=== PATIENT | female | born 1995 | race Caucasian/White ===

== ENCOUNTER → 2016-11-25 | Outpatient (CLI) | payer BC, OTHER ==
[2016-11-25 11:47] LABS: HEMATOCRIT 37.4 % (37.0-47.0); HEMOGLOBIN 12.4 g/dl (12.0-16.0); MEAN CELL VOLUME 88.6 fl (81.0-99.0); MEAN CORPUSCULAR HGB 29.4 pg (27.0-31.0); MEAN CORPUSCULAR HGB CONC 33.2 g/dl (33.0-37.0); MEAN PLATELET VOLUME 9.6 fl (9.6-12.3); RED BLOOD COUNT 4.22 10*6/uL (4.10-5.10); RED CELL DISTRI WIDTH 12.5 % (0-14.5); WHITE BLOOD COUNT 6.6 10*3/uL (4.8-10.8)
[2016-11-25 12:16] LABS: BUN 12 mg/dl (7-24); CHLORIDE 106 mmol/L (98-107); CHOLESTEROL 124 mg/dL (<200); CREATININE 0.87 mg/dL (0.55-1.02); POTASSIUM 3.8 mmol/L (3.5-5.1); SGOT/AST 18 IU/L (3-35); SGPT/ALT 19 U/L (12-78); SODIUM 138 mmol/L (136-145); TOTAL PROTEIN 7.7 gm/dL (6.4-8.2); TRIGLYCERIDES 62 mg/dl (<150); VLDL CHOLESTEROL 12 mg/dL (6-40)
[2016-11-25 12:17] LABS: ALKALINE PHOSPHATASE 77 U/L (45-117); HDL CHOLESTEROL 50 mg/dl (40-60); LDL CHOLESTEROL 62 mg/dL (9-159)
== END | disposition home or self-care (01) ==
LOC: LAB 11:24
PROVIDERS: Family Medicine
DX: K29.70 Gastritis, unspecified, without bleeding (principal)

== ENCOUNTER 2016-11-28 06:14 | Inpatient (IN) | payer BC, OTHER ==
[~2016-11-28] VITALS: Ht 152.4 cm; Wt 45.0 kg
--- NOTE | ~2016-11-28 | WRIGHTHP ---
[place], [place] PATIENT HISTORY AND PHYSICAL EXAM NAME: LORENA CARRILLO [facility] #: [id number] UNIT #: [id number] ROOM: 502 DOCTOR: EVE JERONIMO MD BIRTHDATE: [birth year] DOS: 11/28/2016 HISTORY OF PRESENT ILLNESS: The patient is a 21-year-old female with no past medical history, who presents with abdominal pain in the middle of her stomach, radiating to the right upper quadrant area and no bowel movements since Thursday. The patient was nauseated, but did not vomit. No chest pain. No shortness of breath. No other GI or urinary symptoms. The patient was seen in the Emergency Department and diagnosed as having symptomatic gallstones and was seen by surgeon, Dr. Dyson and recommended for outpatient cholecystectomy on and for patient to be discharged to home. The patient is feeling much better now. REVIEW OF SYSTEMS: LUNGS: No increasing shortness of breath or wheezing. GASTROINTESTINAL: The patient has nausea, but no vomiting or any other symptoms. CARDIOVASCULAR: No chest pains or palpitations. FAMILY HISTORY: Noncontributory. SOCIAL HISTORY: The patient has a fiance, planning to get next month. Denies smoking cigarettes, alcohol or any drug abuse. ALLERGIES: PENICILLIN. PHYSICAL EXAMINATION: GENERAL: Alert, oriented. HEENT AND NECK: Extraocular movements are intact. Sclerae are anicteric. Oral mucosa is moist and clean. No obvious facial weakness. Neck is supple without any lymphadenopathy. No thyromegaly. No JVD. No carotid arterial bruits. LUNGS: Clear to auscultation. No wheezing. No rhonchi. CARDIOVASCULAR SYSTEM: Heart rate is regular in rate and rhythm. S1 and S2 normally audible. No significant murmur or any other abnormal cardiac sounds. ABDOMEN: Mild right upper quadrant discomfort on deep palpation. No rigidity, guarding or rebound tenderness. EXTREMITIES: Without significant cyanosis or edema. Warm to touch. CENTRAL NERVOUS SYSTEM: Alert and oriented x 3. Cranial nerves II-XII are intact. Speech is normal. The patient is able to move all extremities. Normal muscle strength. Deep tendon reflexes are equal on both sides. Plantars were downgoing. LABORATORY DATA: PT, PTT were normal. Ultrasound of the gallbladder showed distended gallbladder with sludge and stones. No biliary dilatation. Normal serum electrolytes. Potassium level of 3.3. Bilirubin elevated at 1.8. Normal CBC. IMPRESSION AND PLAN: 1. The patient with symptomatic gallstones and sludge with slight elevation of bilirubin. The patient was seen by surgeon, Dr. Dyson and recommended outpatient cholecystectomy on . The patient just had nausea for which I will keep her on p.r.n. Zofran and Dr. Dyson has given her prescription for p.r.n. Vicodin [place], [place] PATIENT HISTORY AND PHYSICAL EXAM [id number] #: [id number] ROOM: [facility] DOCTOR: KANDACE BERRY,EVE Johnson BIRTHDATE: [birth year] for pain control. 2. Hypokalemia. The patient is being given extra potassium today and following this patient will be discharged to home to follow up with Dr. Dyson for surgery. 3. Young healthy female with no cardiac history, no mitral valve prolapse, no bleeding disorder. The patient does not take any anticoagulants/ The patient does not have any complaints of chest pain, shortness of breath. No gastrointestinal or urinary symptoms except for nausea, which has resolved. EVE JERONIMO MD CM:HISPHYS:PATIENT HISTORY AND PHYSICAL EXAMINATION [id number] EVE JERONIMO MD 11/28/16 1557 interface
[2016-11-28] MEDS ORDERED: PRILOSEC20 M1 PO (06:21)
[2016-11-28 06:22] VITALS: BP 126/85
[2016-11-28 06:52] LABS: BASO % 0.3 % (0.0-1.0); EOS # 0.1 10*3/uL (0.0-0.4); EOS % 1.1 % (1.0-4.0); HEMATOCRIT 36.8 % (37.0-47.0); HEMOGLOBIN 12.5 g/dl (12.0-16.0); LYMPH # 2.1 10*3/uL (1.3-4.4); LYMPH % 20.4 % (27.0-41.0); MEAN CELL VOLUME 87.8 fl (81.0-99.0); MEAN CORPUSCULAR HGB 29.8 pg (27.0-31.0); MEAN PLATELET VOLUME 9.5 fl (9.6-12.3); MONO # 0.7 10*3/uL (0.1-1.0); MONO % 6.6 % (3.0-9.0); NEUT # 7.4 10*3/uL (2.3-7.9); NEUT % 71.3 % (47.0-73.0); PLATELET COUNT AUTOMATED 260 10*3/uL (130-400); RED BLOOD COUNT 4.19 10*6/uL (4.10-5.10); RED CELL DISTRI WIDTH 12.4 % (0-14.5); WHITE BLOOD COUNT 10.4 10*3/uL (4.8-10.8)
[2016-11-28 06:57] LABS: BILIRUBIN NEGATIVE (NEGATIVE); BLOOD NEGATIVE (NEGATIVE); CLARITY CLEAR (CLEAR); COLOR YELLOW (YELLOW); GLUCOSE NEGATIVE (NEGATIVE); KETONE NEGATIVE (NEGATIVE); LEUKO ESTERASE NEGATIVE (NEGATIVE); NITRITE NEGATIVE (NEGATIVE); UROBILINOGEN 0.2 E.U./dl (0.2-1.0)
[2016-11-28 07:09] LABS: ALBUMIN 3.9 gm/dl (3.1-4.5); ALKALINE PHOSPHATASE 77 U/L (45-117); BUN 10 mg/dl (7-24); CHLORIDE 106 mmol/L (98-107); CREATININE 0.83 mg/dL (0.55-1.02); LIPASE 120 U/L (73-393); POTASSIUM 3.3 mmol/L (3.5-5.1); SGOT/AST 15 IU/L (3-35); SGPT/ALT 18 U/L (12-78); SODIUM 140 mmol/L (136-145); TOTAL PROTEIN 7.6 gm/dL (6.4-8.2)
[2016-11-28 07:11] LABS: BACTERIA TRACE; WBC 0-2 wbc/hpf (0-5)
[2016-11-28 07:16] LABS: BETA-HCG, QUANT < 1.0 mIU/mL (1-3)
--- NOTE | 2016-11-28 07:18 | NUR ---
PATIENT IS ALERT AND ORIENTED X3, STATES THAT HER PAIN IS CURRENTLY A 6/10, PATIENT IS RESTING IN POSITION OF COMFORT IN THE BED, SKIN IS PINK, WARM, AND DRY, RESPIRATIONS ARE EASY AND NONLABORED, PATIENT DENIES ANY OTHER COMPLAINTS AT THIS TIME, CALL LIGHT IN REACH OF THE PATIENT, CONTINUING TO MONITOR THE PATIENT.SHARON ALY
[2016-11-28 07:20] VITALS: BP 119/76
[2016-11-28 08:11] VITALS: BP 112/82
--- NOTE | 2016-11-28 08:11 | NUR ---
PATIENT IS ALERT AND ORIENTED X3, PATIENT IS RESTING IN BED AND TALKING WITH SIGNIFICANT OTHER AND PLAYING WITH 9 MONTH OLD SON, SKIN IS PINK, WARM, AND DRY, RESPIRATIONS ARE EASY AND NONLABORED, CALL LIGHT IN REACH OF THE PATIENT, CONTINUING TO MONITOR THE PATIENT.SHARON ALY
[2016-11-28 08:41] VITALS: BP 117/73
[2016-11-28 08:59] LABS: ACT PARTIAL THROMBO TIME 26.2 SECONDS (20.8-31.5)
--- NOTE | 2016-11-28 09:00 | NUR ---
PATIENT TAKEN TO ROOM 502-2 AND PLACED IN BED, CARE TRANSFERRED TO MARY ALICE CELAYA RN AND SHARON GARDNER. SHARON ALY
--- NOTE | 2016-11-28 09:00 | NUR ---
A 21, admitted to , under the services of Dr. KANDACE BERRY,EVE Johnson with a diagnosis of GALL STONES,BILIARY CHOLIC. Chief complaint is PAIN. Patient arrived via bed from ER. Monitor applied. Initial assessment completed. Vital signs taken and recorded. DR. KANDACE BERRY,EVE Johnson notified of admission to the unit. Orders received. See assessment for past medical history, medications and allergies. Patient and/or family oriented to unit. [facility] visitation policy reviewed. Clothing/patient valuable form completed. SKIN INTACT WITH NO WOUNDS. PT HAS NO HOME MEDICATIONS KENDRA MONROY
[2016-11-28 09:39] VITALS: BP 109/61
--- NOTE | 2016-11-28 10:30 | NUR ---
DR VILLALPANDO IN TO SEE PT. ORDERS FOR PAIN MEDICATION RECEIVED.
--- NOTE | 2016-11-28 10:31 | NUR ---
CALLED DR JERONIMO AND INFORMED HIM THAT PT WAS ON THE FLOOR. ORDERS RECEIVED.
[2016-11-28] MEDS ORDERED: ZOFRAN ODT8 M1 PO (13:05)
--- NOTE | 2016-11-28 14:10 | NUR ---
Discharge instructions reviewed with patient/family. Patient receptive and verbalizes understanding. Follow-up care arranged. Written instructions given to patient/family. KENDRA MONROY
[2016-11-28] MEDS ORDERED: NORCO 5-325 TA1 EACH PO (21:04)
== END 2016-11-28 14:10 | disposition home or self-care (01) | DRG 446 ==
LOC: ED 06:14 → EDHOLD 08:20 → 5E 08:20
PROVIDERS: Emergency Medicine; Student in an Organized Health Care Education/Training Program; ADMIT Internal Medicine
DX: K80.20 Calculus of gallbladder without cholecystitis without obstruction (principal); E87.6 Hypokalemia; Z88.0 Allergy status to penicillin

== ENCOUNTER 2016-11-28 18:46 | Inpatient (IN) | payer BC, OTHER ==
[~2016-11-28] VITALS: Ht 152.4 cm; Wt 52.2 kg
--- NOTE | ~2016-11-28 | PR ---
[place], [place] PROGRESS NOTE NAME: LORENA CARRILLO UNIT #: [id number] ROOM: 507 DOCTOR: EVE JERONIMO MD BIRTHDATE: [birth year] DOS: SUBJECTIVE: The patient is doing better. Her nausea is better. She still has some right upper quadrant pains. OBJECTIVE: VITAL SIGNS: Blood pressure 107/61, heart rate 75 beats per minute, breathing 17 times per minute and temperature 98.4 degrees Fahrenheit. GENERAL APPEARANCE: The patient is alert and oriented x 3, in no visible distress. HEENT AND NECK: Exam within normal limits. CARDIOVASCULAR SYSTEM: Heart rate is regular in rate and rhythm. S1 and S2 normally audible. LUNGS: Clear to auscultation. ABDOMEN: Right upper quadrant tenderness. IMPRESSION AND PLAN: 1. The patient with gallstone pains and gallbladder pains awaiting for cholecystectomy tomorrow. The patient is able to tolerate some diet and her right upper quadrant pains are better and nausea and vomiting have also improved with treatment. Bilirubin slightly elevated at 1.5. Liver enzymes are normal. No leukocytosis. Hemoglobin 11.1. No left shift. 2. Hypokalemia, resolved with extra potassium supplements. Potassium level was normal at 4.1 today. EVE JERONIMO MD CM:PNTRANS [id number] EVE JERONIMO MD 11/30/162139 interface
--- NOTE | ~2016-11-28 | O ---
[place], [place] OPERATIVE NOTE NAME: [facility]NA [facility]O [id number] UN[facility] #: [id number] ROOM: 507 DOCTOR: BHUPINDER JASSO MD BIRTHDATE: [birth year] DOS: 12/01/2016 PREOPERATIVE DIAGNOSIS: Symptomatic gallstones. POSTOPERATIVE DIAGNOSIS: Symptomatic gallstones. PROCEDURE: Laparoscopic cholecystectomy. SURGEON: Bhupinder Jasso MD SEEING EYE DOG TRAINER: RBOERT. ANESTHESIA: GET. INDICATIONS: This is a 21-year-old lady with symptomatic gallstones, who is here for the above-mentioned procedure. The procedure and its complications were explained to the patient in detail preoperatively. Complications that were discussed included, but were not limited to bleeding, infection, hematoma/seroma/abscess formation, prolonged postoperative pain, damage to surrounding vital structures, inadvertent injury to the common bile duct, biloma formation and incisional hernia formation. She agreed to proceed. DESCRIPTION OF PROCEDURE: After identifying the patient, the patient was brought to the operating suite and laid in the supine position. After induction of general anesthesia, the parts were then painted and draped in the usual sterile fashion. A transverse incision below the umbilicus was made. The skin and the subcutaneous tissue were incised. The fascia was incised and 2 stay sutures were taken on either side with 0 Vicryl. The peritoneum was opened and a 12 mm Farida port was introduced into the peritoneal cavity. A pneumoperitoneum was created. Under direct vision, an epigastric incision of 10 mm and two 5 mm incisions were made in the right upper quadrant and appropriate size ports were introduced. The gallbladder was retracted superiorly and laterally. The cystic duct and the cystic artery were carefully dissected until the critical view of safety was obtained. Each of these structures were then clipped 3 times and cut between the first and the second clip. The gallbladder was then removed from the bed of the gallbladder with the help of electrocautery. It was placed in an EndoCatch bag and removed from the peritoneal cavity and sent for histopathological diagnosis. Thereafter, the liver bed was cauterized for bleeding and there was no other bleeding point seen. At this point, the right upper quadrant and the epigastric ports were removed and there was no bleeding seen. The umbilical port was also removed and the pneumoperitoneum was decompressed. The 2 stay sutures were tied together. The skin edges were infiltrated with 1% plain lidocaine and approximated with the help of 4-0 Vicryl in a subcuticular running fashion. There were no complications. Dr. Bhupinder Jasso, the attending surgeon, was present throughout the operating case. [place], [place] OPERATIVE NOTE NAME: LORENA CARRILLO UNIT #: [id number] ROOM: 507 DOCTOR: BHUPINDER JASSO MD BIRTHDATE: [birth year] Bhupinder Jasso MD CM:OPRECORD:OPERATIVE NOTE [id number] BHUPINDER JASSO MD 12/01/16 1109 interface
--- NOTE | ~2016-11-28 | PR ---
[place], [place] PROGRESS NOTE NAME: LORENA CARRILLO UNIT #: [id number] ROOM: 507 DOCTOR: EVE JERONIMO MD BIRTHDATE: [birth year] DOS: 11/29/2016 SUBJECTIVE: Please see my H and P from yesterday. The patient was admitted and then discharged and then readmitted for nausea, vomiting and gallstone cholecystitis, symptomatic, which needs a cholecystectomy. OBJECTIVE: VITAL SIGNS: Blood pressure 101/52, heart rate 65 beats per minute, breathing 18 times per minute, temperature 98.3 degrees Fahrenheit. GENERAL APPEARANCE: The patient is alert and oriented x 3, in no visible distress. HEENT AND NECK: Exam within normal limits. CARDIOVASCULAR SYSTEM: Heart rate is regular in rate and rhythm. S1 and S2 normally audible. LUNGS: Clear to auscultation. ABDOMEN: Soft, nontender. No obvious organomegaly. Bowel sounds are present. EXTREMITIES: Without significant cyanosis or edema. Right upper quadrant tenderness. IMPRESSION: The patient with gallstone cholecystitis with nausea, vomiting and right upper quadrant pain, sent home after clearance by surgery but readmitted because of recurrent symptoms, is now scheduled for a cholecystectomy on Thursday to be performed by Dr. Jasso. Presently, the patient is on Vicodin for symptom control, on hydration with normal saline and being tried on diet as tolerated. I will order liver enzymes and bilirubin for tomorrow along with CBC and electrolytes. Hypokalemia, treated with extra potassium supplements. I will repeat serum electrolytes in the morning. Generally healthy. No history of any heart disease or lung disease, and otherwise asymptomatic. EVE JERONIMO MD CM:PNTRANS [id number] EVE JERONIMO MD 11/29/162256 interface
[~2016-11-28 18:46] MED LIST: PRILOSEC20 M1 PO; ZOFRAN ODT8 M1 PO
[2016-11-28 18:55] VITALS: BP 124/89
[2016-11-28 20:30] VITALS: BP 115/58
[2016-11-28] MEDS ORDERED: NORCO 5-325 TA1 EACH PO (21:04)
[2016-11-29] VITALS: BP 104/55
[2016-11-29 06:22] LABS: BASO % 0.7 % (0.0-1.0); EOS # 0.2 10*3/uL (0.0-0.4); EOS % 4.2 % (1.0-4.0); HEMATOCRIT 32.5 % (37.0-47.0); HEMOGLOBIN 10.8 g/dl (12.0-16.0); LYMPH # 2.3 10*3/uL (1.3-4.4); LYMPH % 41.5 % (27.0-41.0); MEAN CELL VOLUME 90.8 fl (81.0-99.0); MEAN CORPUSCULAR HGB 30.2 pg (27.0-31.0); MEAN CORPUSCULAR HGB CONC 33.2 g/dl (33.0-37.0); MEAN PLATELET VOLUME 9.6 fl (9.6-12.3); MONO # 0.5 10*3/uL (0.1-1.0); MONO % 9.7 % (3.0-9.0); NEUT # 2.4 10*3/uL (2.3-7.9); NEUT % 43.7 % (47.0-73.0); PLATELET COUNT AUTOMATED 206 10*3/uL (130-400); RED BLOOD COUNT 3.58 10*6/uL (4.10-5.10); RED CELL DISTRI WIDTH 12.6 % (0-14.5); WHITE BLOOD COUNT 5.5 10*3/uL (4.8-10.8)
[2016-11-29 08:00] VITALS: BP 99/50
[2016-11-29 16:00] VITALS: BP 101/52
[2016-11-29 20:00] VITALS: BP 109/51
[2016-11-30] VITALS: BP 114/69
[2016-11-30 06:42] LABS: BASO % 0.5 % (0.0-1.0); EOS # 0.3 10*3/uL (0.0-0.4); EOS % 3.1 % (1.0-4.0); HEMATOCRIT 33.2 % (37.0-47.0); HEMOGLOBIN 11.1 g/dl (12.0-16.0); LYMPH # 1.6 10*3/uL (1.3-4.4); LYMPH % 18.9 % (27.0-41.0); MEAN CELL VOLUME 90.7 fl (81.0-99.0); MEAN CORPUSCULAR HGB 30.3 pg (27.0-31.0); MEAN CORPUSCULAR HGB CONC 33.4 g/dl (33.0-37.0); MEAN PLATELET VOLUME 10.1 fl (9.6-12.3); MONO # 0.7 10*3/uL (0.1-1.0); MONO % 8.4 % (3.0-9.0); NEUT # 5.9 10*3/uL (2.3-7.9); NEUT % 68.8 % (47.0-73.0); PLATELET COUNT AUTOMATED 211 10*3/uL (130-400); RED BLOOD COUNT 3.66 10*6/uL (4.10-5.10); RED CELL DISTRI WIDTH 12.5 % (0-14.5); WHITE BLOOD COUNT 8.6 10*3/uL (4.8-10.8)
[2016-11-30 07:06] LABS: ALBUMIN 3.2 gm/dl (3.1-4.5); ALKALINE PHOSPHATASE 63 U/L (45-117); BUN 8 mg/dl (7-24); CHLORIDE 111 mmol/L (98-107); CREATININE 0.67 mg/dL (0.55-1.02); POTASSIUM 4.1 mmol/L (3.5-5.1); SGOT/AST 14 IU/L (3-35); SGPT/ALT 14 U/L (12-78); SODIUM 141 mmol/L (136-145); TOTAL PROTEIN 6.2 gm/dL (6.4-8.2)
[2016-11-30 08:00] VITALS: BP 107/61
[2016-11-30 16:00] VITALS: BP 101/61
[2016-11-30 20:00] VITALS: BP 104/61
[2016-12-01] VITALS (10 sets, daily range): BP systolic 94–122; BP diastolic 50–79
== END 2016-12-01 13:13 | disposition home or self-care (01) | DRG 419 ==
LOC: ED 18:46 → 5E 19:25 → EDHOLD 19:25 → 5E 19:34
PROVIDERS: Surgery; ADMIT Internal Medicine
PROC: 0FT44ZZ Resection of Gallbladder, Percutaneous Endoscopic Approach (ICD-10-PCS; principal; 2016-12-01)
DX: K80.50 Calculus of bile duct without cholangitis or cholecystitis without obstruction (principal); E87.6 Hypokalemia; K80.20 Calculus of gallbladder without cholecystitis without obstruction; Z88.0 Allergy status to penicillin; Z91.010 Allergy to peanuts; Z88.1 Allergy status to other antibiotic agents; Z91.018 Allergy to other foods

== ENCOUNTER 2019-04-01 19:31 | Emergency (ER) | payer BC ==
[~2019-04-01] VITALS: Ht 152.4 cm; Wt 45.4 kg
[~2019-04-01 19:31] MED LIST changes: +NORCO 5-325 TA1 EACH PO
[2019-04-01] MEDS ORDERED: TESSALON PERLE100 M1 PO (20:31)
[2019-04-01] MEDS ORDERED: FLONASE ALLERG9.9 ML NAS (20:31)
[2019-04-01] MEDS ORDERED: ZYRTEC10 MG PO (20:31)
== END 2019-04-01 20:48 | disposition home or self-care (01) ==
LOC: ED 19:31
DX: B34.9 Viral infection, unspecified (principal); Z91.010 Allergy to peanuts; Z88.0 Allergy status to penicillin; Z88.1 Allergy status to other antibiotic agents

== ENCOUNTER → 2019-05-12 | Outpatient (CLI) | payer BC ==
[~2019-05-12] MED LIST changes: +FLONASE ALLERG9.9 ML NAS; +TESSALON PERLE100 M1 PO; +ZYRTEC10 MG PO
[2019-05-12 15:47] LABS: HEMATOCRIT 39.1 % (37.0-47.0); HEMOGLOBIN 12.7 g/dl (12.0-16.0); MEAN CELL VOLUME 92.4 fl (81.0-99.0); MEAN CORPUSCULAR HGB CONC 32.5 g/dl (33.0-37.0); MEAN PLATELET VOLUME 9.9 fl (9.6-12.3); RED BLOOD COUNT 4.23 10*6/uL (4.10-5.10); RED CELL DISTRI WIDTH 12.7 % (0-14.5); WHITE BLOOD COUNT 6.4 10*3/uL (4.8-10.8)
[2019-05-12 16:03] LABS: ALBUMIN 4.1 gm/dl (3.1-4.5); BUN 15 mg/dl (7-24); CHLORIDE 107 mmol/L (98-107); CHOLESTEROL 118 mg/dL (<200); POTASSIUM 3.8 mmol/L (3.5-5.1); SGOT/AST 16 IU/L (3-35); SGPT/ALT 24 U/L (12-78); SODIUM 140 mmol/L (136-145); TOTAL PROTEIN 7.9 gm/dL (6.4-8.2); TRIGLYCERIDES 58 mg/dl (<150); VLDL CHOLESTEROL 12 mg/dL (6-40)
[2019-05-12 16:04] LABS: ALKALINE PHOSPHATASE 86 U/L (45-117); HDL CHOLESTEROL 51 mg/dl (40-60); LDL CHOLESTEROL 55 mg/dL (9-159)
[2019-05-12 16:33] LABS: FREE T4 0.67 ng/dl (0.76-1.46)
== END ==
LOC: LAB 15:29
PROVIDERS: Family Medicine
DX: R63.5 Abnormal weight gain (principal); R53.83 Other fatigue; M79.10 Myalgia, unspecified site; J02.9 Acute pharyngitis, unspecified; I88.9 Nonspecific lymphadenitis, unspecified